=== PATIENT | male | born 1930 | race Caucasian/White ===

== ENCOUNTER → 2016-11-30 | Outpatient (CLI) | payer MEDICARE, BC ==
[~2016-11-30] MED LIST: ALLO100T PO; ASPI-557 PO; ATOR10TA64 PO; BRIM5DRO4 BOTH EYES; DOCU100C PO; DORZ10DR12 BOTH EYES; LATA2.5D7 BOTH EYES; SEVE800T9 PO
--- NOTE | 2016-11-30 10:36 | DI ---
Indication: ITS.REASON: N28.89 Other specified disorders of kidney and ureter PROCEDURE: US RENAL: Encounter: Subsequent Comparison: Renal CT dated August 26, 2016 and renal ultrasound dated August 10, 2016 Technique: Grayscale and color Doppler sonographic imaging of both kidneys was performed. FINDINGS: Right kidney is surgically absent. Left kidney shows moderate cortical thinning with a 2.3 x 2 x 2.2 cm simple appearing anechoic cyst arising from the inferior portion. There is a solid mixed echogenicity 2.8 cm mass arising from the superior pole of the left kidney corresponding to the findings on prior CT. This shows some internal vascular flow on the color Doppler images and areas of internal increased echogenicity possibly representing calcification. No hydronephrosis or obvious stone disease. Additional subcentimeter left renal simple cysts are noted incidentally. Left kidney measures 10.3 cm in length. Impression: Stable size of the 2.8 cm vascularized left renal mass consistent with a renal cell carcinoma. .
== END ==
LOC: IMA 09:23
PROVIDERS: ATTEND Urology
DX: N28.89 Other specified disorders of kidney and ureter (principal)